=== PATIENT | female | born 1955 | race African-American/Black ===

== ENCOUNTER 2017-09-03 19:38 | Emergency (ER) | payer SELFPAY ==
[~2017-09-03] VITALS: Ht 177.8 cm; Wt 154.0 kg
[2017-09-03 22:00] VITALS: BP 126/76
== END 2017-09-04 01:08 | disposition left against medical advice (07) ==
LOC: ER 19:38
DX: R07.81 Pleurodynia (principal); M25.562 Pain in left knee; M79.642 Pain in left hand; G89.29 Other chronic pain; M54.9 Dorsalgia, unspecified; Z98.890 Other specified postprocedural states
CPT/HCPCS: 71045; 73110; 73130; 73562; 99284